=== PATIENT | female | born 1980 | race Caucasian/White ===

== ENCOUNTER 2021-02-08 12:11 | Emergency (ER) | payer BC ==
[2021-02-08 12:21] VITALS: BP 114/67; PULSE 68; TEMP 98.2; BMI 22.3
[2021-02-08 13:53] LABS: BASO % 1.2 % (0-2.0); EOS % 1.9 % (0-4.5); HEMATOCRIT 40.1 % (32.4-45.2); HEMOGLOBIN 13.6 GM/dL (10.7-15.3); LYMPH % 35.7 % (8-40); MCH 31.4 pg (25.7-33.7); MCHC 33.9 g/dl (32.0-36.0); MEAN CELL VOLUME 92.4 fl (80-96); MEAN PLT VOLUME 9.6 fl (7.5-11.1); MONO % 5.7 % (3.8-10.2); NEUT % 55.5 % (42.8-82.8); PLATELET COUNT 297 10^3/uL (134-434); RBC 4.34 M/mm3 (3.60-5.2); RDW 13.6 % (11.6-15.6); WHITE BLOOD COUNT 5.7 K/mm3 (4.0-10.0)
[2021-02-08] MEDS ORDERED: ACETAMINOPHEN 325 MG TABLET (FP) PO ONE (14:13)
[2021-02-08] MEDS ORDERED: ACETAMINOPHEN 325 MG TABLET (FP) ONE (14:19)
== END 2021-02-08 16:47 | disposition home or self-care (01) ==
LOC: JER 12:11
DX: R10.2 Pelvic and perineal pain (principal); Z32.02 Encounter for pregnancy test, result negative
CPT/HCPCS: 36415; 76830-TC; 84702; 85025; 86850; 86900; 86901; 99284-25

== ENCOUNTER 2023-06-17 12:31 | Emergency (ER) | payer BC ==
[2023-06-17 12:40] VITALS: BP 125/81; PULSE 82; RESP 18; TEMP 98.4; BMI 23.3
== END 2023-06-17 13:26 | disposition home or self-care (01) ==
LOC: JERFT 12:31
PROC: 0HQGXZZ Repair Left Hand Skin, External Approach (ICD-10-PCS; principal; 2023-06-17)
DX: S61.215A Laceration without foreign body of left ring finger without damage to nail, initial encounter (principal); W26.0XXA Contact with knife, initial encounter; Y28.0XXA Contact with sharp glass, undetermined intent, initial encounter; Y93.G1 Activity, food preparation and clean up
CPT/HCPCS: 99282-25

== ENCOUNTER 2024-03-17 04:41 | Emergency (ER) | payer BC ==
[2024-03-17 04:51] VITALS: BMI 22.1
[2024-03-17] MEDS ORDERED: METOPROLOL TARTRATE 5 MG/5 ML VIAL ONE (04:59)
[2024-03-17] MEDS: SODIUM CHLORIDE 0.9% 500 ML INFUS.BAG IV ONE (05:21)
[2024-03-17] MEDS: METOPROLOL TARTRATE 5 MG/5 ML VIAL IVPUSH ONE (05:35)
[2024-03-17 05:41] LABS: BASO % 1.8 % (0-2.0); EOS % 1.3 % (0-4.5); HEMOGLOBIN 13.1 GM/dL (10.7-15.3); LYMPH % 44.5 % (8-40); MCH 30.3 pg (25.7-33.7); MCHC 33.5 g/dl (32.0-36.0); MEAN CELL VOLUME 90.6 fl (80-96); MEAN PLT VOLUME 10.3 fl (7.5-11.1); MONO % 6.9 % (3.8-10.2); NEUT % 45.5 % (42.8-82.8); PLATELET COUNT 292 10^3/uL (134-434); RBC 4.31 M/mm3 (3.60-5.2); RDW 13.8 % (11.6-15.6); WHITE BLOOD COUNT 12.3 K/mm3 (4.0-10.0)
[2024-03-17 07:14] LABS: POTASSIUM 4.4 mmol/L (3.5-5.1)
[2024-03-17 07:16] LABS: ALBUMIN 3.8 g/dl (3.4-5.0); BLOOD UREA NITROGEN 14.4 mg/dL (7-18); CALCIUM 8.8 mg/dL (8.5-10.1)
[2024-03-17 07:20] LABS: CREATININE 0.8 mg/dL (0.55-1.3)
[2024-03-17 07:21] LABS: BILIRUBIN,TOTAL 0.5 mg/dL (0.2-1); TOT PROT 6.8 g/dl (6.4-8.2)
[2024-03-17 08:14] VITALS: RESP 18; TEMP 98.4
[2024-03-17 09:18] LABS: INR 1.11 (0.83-1.09); PROTHROMBIN TIME (PATIENT) 12.7 SEC (9.7-13.0)
[2024-03-17 09:21] LABS: ACTIVATED PTT 30.9 SECONDS (25.2-36.5)
[2024-03-17 10:20] VITALS: BP 110/70; PULSE 81
== END 2024-03-17 13:34 | disposition home or self-care (01) ==
LOC: JER 04:41
PROC: 3E033GC Introduction of Other Therapeutic Substance into Peripheral Vein, Percutaneous Approach (ICD-10-PCS; principal; 2024-03-17)
DX: R00.2 Palpitations (principal); M54.2 Cervicalgia; F41.9 Anxiety disorder, unspecified; Z20.822 Contact with and (suspected) exposure to COVID-19
CPT/HCPCS: 0241U-QW; 36415; 71045-TC-FY; 71275-TC; 80053; 82962; 83690; 83735; 83880; 84439; 84443; 84484; 84703; 85025; 85379; 85610; 85730; 93005; 93010; 99285-25